=== PATIENT | female | born 1945 | race Caucasian/White ===

== ENCOUNTER 2025-03-20 11:00 | Outpatient (RCR) | payer MEDICARE, MEDICAID, SELFPAY ==
[2025-02-27 10:32] VITALS: BP 136/81; PULSE 84; RESP 14; TEMP 36.4
--- NOTE | 2025-02-27 13:28 | WC ---
PHOTO-RIGHT [facility] 02/27/25
--- NOTE | 2025-02-27 13:29 | WC ---
PHOTO-RIGHT [facility] 02/27/25
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
[2025-03-06 10:29] VITALS: BP 163/91; PULSE 82; RESP 16; TEMP 36.3
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
--- NOTE | 2025-03-06 13:57 | WC ---
PHOTO-RIGHT HERNANDEZ 03/06/25
--- NOTE | 2025-03-06 14:04 | WC ---
PHOTO-RIGHT MED ANKLE 03/06/25
--- NOTE | 2025-03-06 14:06 | WC ---
PHOTO-RIGHT HERNANDEZ 03/06/25
--- NOTE | 2025-03-06 14:08 | WC ---
PHOTO-RIGHT HERNANDEZ 03/06/25
[2025-03-20 11:42] VITALS: BP 158/100; PULSE 91; RESP 18; TEMP 36.5
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
--- NOTE | 2025-03-20 15:03 | WC ---
PHOTO-RIGHT MED ANKLE 03/20/25
--- NOTE | 2025-03-20 15:06 | WC ---
PHOTO-RIGHT HERNANDEZ 03/20/25
--- NOTE | 2025-03-25 08:23 | WC ---
Dr. Duron transfers care of this patient over to Dr. Carrington as of 03/20/25
== END 2025-03-25 23:59 | disposition home or self-care (01) ==
LOC: WC 11:00
PROVIDERS: PCP Family Medicine; Referring Provider Internal Medicine; Visit Provider Student in an Organized Health Care Education/Training Program
DX: L97.312 Non-pressure chronic ulcer of right ankle with fat layer exposed (principal); L97.212 Non-pressure chronic ulcer of right calf with fat layer exposed; I87.2 Venous insufficiency (chronic) (peripheral); I10 Essential (primary) hypertension; M76.821 Posterior tibial tendinitis, right leg; F41.9 Anxiety disorder, unspecified; R60.0 Localized edema; M19.071 Primary osteoarthritis, right ankle and foot; G47.00 Insomnia, unspecified
CPT/HCPCS: 11042

== ENCOUNTER 2025-04-10 10:00 | Outpatient (RCR) | payer MEDICARE, MEDICAID, SELFPAY ==
[2025-03-27 11:22] VITALS: BP 160/109; PULSE 83; RESP 16; TEMP 36.3; O2SAT 95
--- NOTE | 2025-03-27 13:13 | HP.PCM_ITS ---
History of Present Illness Date of Service: 03/27/25 Chief Complaint: Right lower extremity ulceration History of Wound: Ms. Sandoval is an 79-year-old who is a transfer of care to [place]. Had previously seen podiatry/wound care here. Being managed for right lower extremity ulcerations, now down to 1. Her daughter states that she has not been doing dressing changes as recommended. Believes that current dressing was left in place since it was placed here. She is unable to do it herself and there is no family member that is as available as her daughter works 2 jobs and her granddaughter lives an hour away. No documented history of diabetes mellitus. No chills, fever or otherwise feeling of unwell. [facility] Home Medications Medication Instructions Recorded Last Taken Type amlodipine 10 mg tablet 10 mg PO DAILY 02/27/25 Unkn own History colestipol 1 gram tablet 2 g PO BID 02/27/25 Unknown History potassium chloride 20 mEq 40 meq PO 02/27/25 Unknown H istory tablet,extended release(part/cryst) sertraline 50 mg tablet 50 mg PO DAILY 02/27/25 Unkn own History Allergy/AdvReac Type Severity Reaction Status Date / Time lisinopril Allergy Severe Anaphylaxis Verified 02/27/25 11:59 ROS Constitutional Constitutional: Denies change in weight, chills, excessive sweating, fatigue, fever(s) or headache(s) Eyes Eyes: Denies blindness, blurry vision, change in vision, discharge from eye(s), discongugate gaze or double vision ENT HEENT: Denies disequillibrium, dizziness, dysphagia, nasal congestion, nasal discharge or sore throat Cardiovascular Cardiovascular: Denies abdominal pain, chest pain, claudication, cold extremities, diaphoresis or palpitations Respiratory/Chest Respiratory/Chest: Denies cough, dyspnea on exertion, excessive phlegm production, hemoptysis, hoarseness, shortness of breath at rest or wheezing Gastrointestinal Gastrointestinal: Denies abdominal pain, bloating, constipation, diarrhea, excessive flatus, nausea or vomiting Genitourinary Genitourinary: Denies abdominal discomfort, dysuria, flank pain, hematuria or urinary urgency Musculoskeletal Musculoskeletal: Denies deformity, extremity pain, joint pain, joint stiffness or joint swelling Integumentary Integumentary: Denies erythema, furuncle, hirsutism, jaundice, pruritus, rash or skin swelling Neurologic Neurologic: Denies abnormal movements, abnormal speech, behavior changes, dizziness, numbness or seizures Psychiatric Psychiatric: Reports anxiety and depression; Denies auditory hallucinations, behavioral changes, difficulty concentrating or homicidal ideation Endocrine Endocrinology: Denies cold intolerance, deepening of the voice, excessive sweating, flushing or heat intolerance Hematologic/Lymphatic Hematologic/Lymphatic: Denies easy bleeding or easy bruising Allergic/Immunologic Allergic/Immunologic: Denies tongue swelling, hives, eczemia or wheezing Vital Signs Vital Signs Vital Signs: 03/27/25 11:22 Temperature 97.3 F L Temperature Source Temporal Pulse Rate 83 Respiratory Rate 16 Blood Pressure 160/109 H Blood Pressure Mean 126 Blood Pressure Source Monitor Blood Pressure Position Semi-Fowlers Blood Pressure Location Right Arm Pulse Ox 95 Oxygen Delivery Method Room Air Physical Exam Const alert and no apparent distress General Appearance: cooperative, comfortable and well kempt HEENT normocephalic Eyes General Eye: normal appearance of both eyes Neck full ROM General: normal visual inspection Resp normal respiratory effort Effort and Inspection: able to speak in complete sentences Extremity General Extremity: edema Skin Wounds: wounds noted size Size: See clinical note, bed granulating well, margins well approximated, no odor, open and surrounding erythema Neuro CN's II-XII intact bilaterally and moves all extremities Psych mental status grossly normal, thought process normal and cooperative Debridement Note Debridement Note Wound debrided: Right lower extremity (medial) Type of Debridement: Excisional debridement Anesthesia Used: 5% Lidocaine Gel Depth: Down to and including healthy tissue and in the subcutaneous layer Percentage of wound debrided: 100 Instrument Used: 5mm curette Tissue Removed: Slough and devitalized tissue Severity: Fat Layer Exposed Amount of bleeding with debridement: Mild Bleeding Controlled with: Pressure Patient tolerated procedure: Patient tolerated procedure well Post-Debridement Measurements and Additional Note: Post-Debridement Measurements/Treatment MER - Nurse 1 - General Ulcer Assessment Start: 03/27/25 11:22 Freq: Status: Active Protocol: DAMIR Activity Type Activity Date Activity User E-sign Co-sign Detail Recorded Client Recorded Date Recorded By Document 03/27/25 11:22 ROLY [id number] 03/27/25 11:42 ROLY 03/27/25 11:22 Vital Signs Temperature (97.8 F-99.1 F) 97.3 F L Temperature Source Temporal Pulse Rate (60-100) 83 Pulse Location Monitor Respiratory Rate (12-18) 16 Respiratory rate source Observation Pulse Oximetry 95 Oxygen Delivery Method Room Air Blood Pressure (90/60-120/80) 160/109 H Blood Pressure Mean 126 Source Monitor Position Semi-Fowlers Blood Pressure Location Right Arm History Since Last Visit- (Skip if this is Patient's initial visit) Have you changed medications since your No last visit? Any new allergies or adverse reactions No Had a fall/change in ADL's that may No increase risk of falls Signs or symptoms of abuse and/or No neglect since last visit Have you been in the hospital since your No last visit? Has dressing in place as prescribed Yes Has compression in place as prescribed No Has offloadiing in place as prescribed Yes Experienced any changes in pain level or No management Left Footwear Regular Shoe Right Footwear Breese/Foam Pain Scale: 0-10 Numeric Is Patient Pain Free? Yes WC - Nurse 1 - General Ulcer Measurement Start: 03/27/25 11:22 Freq: Status: Active Protocol: Activity Type Activity Date Activity User E-sign Co-sign Detail Recorded Client Recorded Date Recorded By Document 03/27/25 11:22 ROLY [id number] 03/27/25 11:42 ROLY 03/27/25 11:22 Wound Center Nurse 1 #2 RIGHT HERNANDEZ -Combined with other wound No -Current Size (cm) - Length 0.1 -Current Size (cm) - Width 0.1 -Current Size (cm) - Depth 0.1 -Total Square Cm 0.01 -Date of Last Picture (Recall this 03/27/25 field) -Photo Taken Yes -Tunneling No -Undermining/Tunneling No -Circular Undermining No -Exudate Amt None Present -Wound Margin Distinct, Outline Attached -Texture (Sharon-wound Skin Appearance) Assessed -Moisture (Sharon-wound Skin Appearance) Assessed -Color (Sharon-wound Skin Appearance) Assessed -Temperature (Sharon-wound Skin No Abnormality Appearance) (Pt Warm) -Tenderness on Palpation (Sharon-wound No Skin Appearance) -Ulcer Cleansing Soap and Water -Foul Odor after Cleansing No -Wound Comment(s) scab #1 RIGHT MEDIAL ANKLE -Combined with other wound No -Current Size (cm) - Length 0.9 -Current Size (cm) - Width 1 -Current Size (cm) - Depth 0.1 -Total Square Cm 0.9 -Date of Last Picture (Recall this 03/27/25 field) -Photo Taken Yes -Tunneling No -Undermining/Tunneling No -Circular Undermining No -Exudate Amt Small -Exudate Type Serosanguineous -Wound Margin Distinct, Outline Attached -Granulation Amt Medium (34-66%) -Granulation Quality [place],Red -Slough/Fibrin Yes -Necrosis Amt Medium (34-66%) -Necrotic Tissue Type Adherent Slough -Texture (Sharon-wound Skin Appearance) Assessed -Moisture (Sharon-wound Skin Appearance) Assessed -Color (Sharon-wound Skin Appearance) Assessed -Temperature (Sharon-wound Skin No Abnormality Appearance) (Pt Warm) -Tenderness on Palpation (Sharon-wound Yes Skin Appearance) -Ulcer Cleansing Soap and Water -Foul Odor after Cleansing No -Anesthetic Used 5% Lidocaine Gel Lower Limb Edema Present Yes Right Calf (cm) 40.5 Right Ankle (cm) 29.3 WC - Nurse 2 - General Ulcer CM Notes Start: 03/27/25 11:22 Freq: Status: Active Protocol: Activity Type Activity Date Activity User E-sign Co-sign Detail Recorded Client Recorded Date Recorded By Document 03/27/25 11:48 [id number] 03/27/25 11:56 GM 03/27/25 11:48 Wound Center Nurse 2 #1 RIGHT MEDIAL ANKLE -Time 11:49 -Correct Patient Yes -Correct Side, Site, Position Yes -Correct Procedure Yes -Procedure Performed Yes -Type of Procedure Debridement -Clinical Debridement Subcutaneous -Tissue Removed Subcutaneous -Post Debridement (cm) - Length 1.3 -Post Debridement (cm) - Width 1.0 -Post Debridement (cm) - Depth 0.1 -Total Square (Post) (cm) 1.30 -Area of Debridement (cm) - Length 1.3 -Area of Debridement (cm) - Width 1.0 -Total Square (Area) (cm) 1.30 -Tunneling No -Undermining/Tunneling No -Circular Undermining No -Wound/Ulcer Outcome Not Healed -Ulcer Cleansing Rinsed/ Irrigated with Saline -Foul Odor after Cleansing No -Bioengineered Tissue No -Bleeding Controlled with Pressure -Treatment Response Procedure Tolerated Well -Offloading Yes -Type of Offloading Other -Other Type of Offloading afo -Debridement - Subq, 1st 20sq cm Yes Pain Scale: 0-10 Numeric Is Patient Pain Free? Yes WC - Nurse 3 - General Ulcer D/C NN Start: 03/27/25 11:22 Freq: Status: Active Protocol: Activity Type Activity Date Activity User E-sign Co-sign Detail Recorded Client Recorded Date Recorded By Document 03/27/25 12:24 RB [id number] 03/27/25 12:27 RB 03/27/25 12:24 Wound Care Center Nurse 3 #2 RIGHT HERNANDEZ -Primary Dressing Applied NonAdherent Contact Layer, Silicone Border Foam AG 3.6x4 -Silicone Border Foam AG 3.6x4 1 #1 RIGHT MEDIAL ANKLE -Primary Dressing Applied Promogran Sarahi Matter, Silicone Border Foam 4x4 -Promogran Sarahi Matter 1 -Silicone Border Foam 4x4 1 RLE -Multi-Layered Wrap Application Multi-Layer Comp - Right ($ ) -Multi-Layer Compression Right (Qty 1 applied) Treatment Response Procedure Tolerated Well Pain Scale: 0-10 Numeric Is Patient Pain Free? Yes WC - Visit Discharge Discharge Condition Stable Ambulatory Status Ambulatory, Walker Transportation Private Auto Medication Reconcilliation completed & No provided to patient/care provider Clinical Summary of Care Provided Yes Charges/Coding Visit Charges Office Visits / Consults: [id number] OV L3 New 30min Procedures Integumentary [id number]: [id number] Denise subq tissue 20 sq cm/< Assessment/Plan Assessment/Plan (1) Non-pressure chronic ulcer of right ankle with fat layer exposed: CODE(S): L97.312 - Non-pressure chronic ulcer of right ankle with fat layer exposed (2) Non-pressure chronic ulcer of right calf with fat layer exposed: CODE(S): L97.212 - Non-pressure chronic ulcer of right calf with fat layer exposed (3) Venous insufficiency (chronic) (peripheral): CODE(S): I87.2 - Venous insufficiency (chronic) (peripheral) (4) Localized edema: CODE(S): R60.0 - Localized edema (5) Posterior tibial tendon dysfunction (PTTD) of right lower extremity: CODE(S): M76.821 - Posterior tibial tendinitis, right leg (6) Primary osteoarthritis, right ankle and foot: CODE(S): M19.071 - Primary osteoarthritis, right ankle and foot (7) Essential (primary) hypertension: CODE(S): I10 - Essential (primary) hypertension PLAN: Plan Debridement done as documented above, procedure was well-tolerated. No clinical concern for infection however, full compliance with dressing changes. As above, daughter states that patient is unable to do it on her own and she has no help consistently not to come in and do it every day. Continue Sarahi, cover with foam dressing. 3M wrap for edema management. Follow-up on Monday for nurse visit/change and in a week with me. Encourage leg elevation. Adequate protein intake and exercise as tolerated. Their questions were answered, they were advised to let us know if they have any further questions or concerns. Follow- up as above. This note was generated with [employer] dictation software. It may contain incorrect words, spelling, and punctuation that were not noted in checking the note before signing.
--- NOTE | 2025-03-31 10:39 | WC ---
PHOTO-RIGHT HERNANDEZ 03/27/25
--- NOTE | 2025-03-31 10:40 | WC ---
PHOTO-RIGHT MED ANKLE 03/27/25
[2025-03-31 11:25] VITALS: BP 138/63; PULSE 82; RESP 18; TEMP 36.3
[2025-04-03 11:13] VITALS: BP 161/100; PULSE 82; RESP 18; TEMP 35.3
--- NOTE | 2025-04-03 13:15 | PCM.WC.PN ---
History of Present Illness Date of Service: 04/03/25 Chief Complaint: Right lower extremity ulceration History of Wound: Ms. Sandoval is an 79-year-old who [place] a [place] of care to [place]. Had previously seen podiatry/wound care here. Being managed for right lower extremity ulcerations, now down to 1. Her daughter states that she has not been doing dressing changes as recommended. Believes that current dressing was left in place since it was placed here. She is unable to do it herself and there is no family member that is as available as her daughter works 2 jobs and her granddaughter lives an hour away. No documented history of diabetes mellitus. No chills, fever or otherwise feeling of unwell. Progress of Wound: No acute concerns at this time. Tolerated 3M without any concerns. Charles ulcer is healed. Ankle ulcer with some improvement. Objective Data Objective Data Vital Signs: Vital Signs Temp Pulse Resp BP Pulse Ox O2 Del Method 95.5 F L 82 18 161/100 H 95 Room Air 04/03/25 11:13 04/03/25 11:13 04/03/25 11:13 04/03/25 11:13 03/27/25 11:22 03/27/25 11:22 Oxygen Delivery Method Room Air Charges/Coding Procedures Integumentary [id number]: [id number] Denise subq tissue 20 sq cm/< Physical Exam Const alert and no apparent distress General Appearance: cooperative, comfortable and well kempt HEENT normocephalic Eyes General Eye: normal appearance of both eyes Neck full ROM General: normal visual inspection Resp normal respiratory effort Effort and Inspection: able to speak in complete sentences Extremity General Extremity: edema Skin Wounds: wounds noted size Size: See clinical note, bed granulating well, margins well approximated, no odor, open and surrounding erythema Neuro CN's II-XII intact bilaterally and moves all extremities Psych mental status grossly normal, thought process normal and cooperative Debridement Note Debridement Note Wound debrided: Right ankle Type of Debridement: Excisional debridement Anesthesia Used: 5% Lidocaine Gel Depth: Down to and including healthy tissue and in the subcutaneous layer Instrument Used: 5mm curette Tissue Removed: Slough and devitalized tissue Severity: Fat Layer Exposed Amount of bleeding with debridement: Mild Bleeding Controlled with: Pressure Patient tolerated procedure: Patient tolerated procedure well Post-Debridement Measurements and Additional Note: Post-Debridement Measurements/Treatment WC - Nurse 1 - General Ulcer Assessment Start: 03/27/25 11:22 Freq: Status: Active Protocol: MER.LOWJOSELUIST Activity Type Activity Date Activity User E-sign Co-sign Detail Recorded Client Recorded Date Recorded By Document 03/27/25 11:22 ROLY [id number] 03/27/25 11:42 ROLY Document 03/31/25 11:25 RB [id number] 03/31/25 11:27 RB Document 04/03/25 11:13 RB [id number] 04/03/25 11:16 RB 03/27/25 03/31/25 04/03/25 11:22 11:25 11:13 - Today's Visit Information Type of service Nurse-only Follow-up Visit Visit (Physician/[employer] ) Arrival Mode Walker Ambulatory, Walker Transfer Assistance Manual Manual Patient Identification Verified (Name & Yes Yes ) Patient Requires Transmission-Based No No Precautions Vital Signs Temperature (97.8 F-99.1 F) 97.3 F L 97.4 F L 95.5 F L Temperature Source Temporal Temporal Temporal Pulse Rate (60-100) 83 82 82 Pulse Location Monitor Monitor Monitor Respiratory Rate (12-18) 16 18 18 Respiratory rate source Observation Observation Observation Pulse Oximetry 95 Oxygen Delivery Method Room Air Blood Pressure (90/60-120/80) 160/109 H 138/63 H 161/100 H Blood Pressure Mean (mm Hg) 126 88 120 Source Monitor Monitor Monitor Position Semi-Fowlers Semi-Fowlers Semi-Fowlers Blood Pressure Location Right Arm Left Arm Left Arm History Since Last Visit- (Skip if this is Patient's initial visit) Have you changed medications since your No No No last visit? Any new allergies or adverse reactions No No No Had a fall/change in ADL's that may No No No increase risk of falls Signs or symptoms of abuse and/or No No No neglect since last visit Have you been in the hospital since your No No No last visit? Has dressing in place as prescribed Yes Yes Yes Has compression in place as prescribed No Yes Yes Has offloadiing in place as prescribed Yes N/A N/A Experienced any changes in pain level or No No No management Left Footwear Regular Shoe Regular Shoe Regular Shoe Right Footwear [place]/Foam Regular Shoe Custom Shoe Pain Scale: 0-10 Numeric Is Patient Pain Free? Yes Yes Yes WC - Nurse 1 - General Ulcer Measurement Start: 03/27/25 11:22 Freq: Status: Active Protocol: Activity Type Activity Date Activity User E-sign Co-sign Detail Recorded Client Recorded Date Recorded By Document 03/27/25 11:22 JM [id number] 03/27/25 11:42 JM Document 03/31/25 11:25 RB [id number] 03/31/25 11:27 RB Document 04/03/25 11:13 RB [id number] 04/03/25 11:16 RB 03/27/25 03/31/25 04/03/25 11:22 11:25 11:13 Wound Center Nurse 1 #2 RIGHT CHARLES -Combined with other wound No No -Current Size (cm) - Length 0.1 0.1 -Current Size (cm) - Width 0.1 0.1 -Current Size (cm) - Depth 0.1 0.1 -Total Square Cm 0.01 0.01 -Date of Last Picture (Recall this 03/27/25 field) -Photo Taken Yes Yes -Tunneling No No -Undermining/Tunneling No No -Circular Undermining No No -Exudate Amt None Present Medium -Exudate Type Serosanguineous -Wound Margin Distinct, Distinct, Outline Outline Attached Attached -Granulation Amt Medium (34-66%) -Granulation Quality [place] -Slough/Fibrin Yes -Necrosis Amt Medium (34-66%) -Necrotic Tissue Type Adherent Slough -Structure Exposed N/A -Texture (Sharon-wound Skin Appearance) Assessed Assessed -Moisture (Sharon-wound Skin Appearance) Assessed Assessed -Color (Sharon-wound Skin Appearance) Assessed Assessed -Temperature (Sharon-wound Skin No Abnormality No Abnormality Appearance) (Pt Warm) (Pt Warm) -Tenderness on Palpation (Sharon-wound No No Skin Appearance) -Ulcer Cleansing Soap and Water Wound Cleanser -Foul Odor after Cleansing No No -Anesthetic Used 5% Lidocaine Gel -Wound Comment(s) scab #1 RIGHT MEDIAL ANKLE -Combined with other wound No No -Current Size (cm) - Length 0.9 1 -Current Size (cm) - Width 1 1.5 -Current Size (cm) - Depth 0.1 0.1 -Total Square Cm 0.9 1.5 -Date of Last Picture (Recall this 03/27/25 field) -Photo Taken Yes Yes -Tunneling No No -Undermining/Tunneling No No -Circular Undermining No No -Exudate Amt Small Medium -Exudate Type Serosanguineous Serosanguineous -Wound Margin Distinct, Distinct, Outline Outline Attached Attached -Granulation Amt Medium (34-66%) Medium (34-66%) -Granulation Quality [place],Red [place] -Slough/Fibrin Yes Yes -Necrosis Amt Medium (34-66%) Medium (34-66%) -Necrotic Tissue Type Adherent Slough Adherent Slough -Structure Exposed N/A -Texture (Sharon-wound Skin Appearance) Assessed Assessed -Moisture (Sharon-wound Skin Appearance) Assessed Assessed -Color (Sharon-wound Skin Appearance) Assessed Assessed -Temperature (Sharon-wound Skin No Abnormality No Abnormality Appearance) (Pt Warm) (Pt Warm) -Tenderness on Palpation (Sharon-wound Yes No Skin Appearance) -Ulcer Cleansing Soap and Water Wound Cleanser -Foul Odor after Cleansing No No -Anesthetic Used 5% Lidocaine 5% Lidocaine Gel Gel Lower Limb Edema Present Yes Yes Yes Right Calf (cm) 40.5 38.6 42.5 Right Ankle (cm) 29.3 26 26.5 - Nurse 2 - General Ulcer CM Notes Start: 03/27/25 11:22 Freq: Status: Active Protocol: Activity Type Activity Date Activity User E-sign Co-sign Detail Recorded Client Recorded Date Recorded By Document 03/27/25 11:48 [id number] 03/27/25 11:56 Document 04/03/25 11:21 [id number] 04/03/25 11:26 03/27/25 04/03/25 11:48 11:21 Wound Center Nurse 2 #2 RIGHT CHARLES -Time 11:22 -Correct Patient Yes -Correct Side, Site, Position Yes -Correct Procedure No -Procedure Performed No -Tunneling No -Undermining/Tunneling No -Circular Undermining No -Wound/Ulcer Outcome Healed- Epithelialized -Foul Odor after Cleansing No -Bioengineered Tissue No -Bleeding Controlled with NA -Offloading No #1 RIGHT MEDIAL ANKLE -Time 11:49 11:23 -Correct Patient Yes Yes -Correct Side, Site, Position Yes Yes -Correct Procedure Yes Yes -Procedure Performed Yes Yes -Type of Procedure Debridement Debridement -Clinical Debridement Subcutaneous Subcutaneous -Tissue Removed Subcutaneous Subcutaneous -Post Debridement (cm) - Length 1.3 1.2 -Post Debridement (cm) - Width 1.0 0.5 -Post Debridement (cm) - Depth 0.1 0.1 -Total Square (Post) (cm) 1.30 0.60 -Area of Debridement (cm) - Length 1.3 1.2 -Area of Debridement (cm) - Width 1.0 0.5 -Total Square (Area) (cm) 1.30 0.60 -Tunneling No No -Undermining/Tunneling No No -Circular Undermining No No -Wound/Ulcer Outcome Not Healed Not Healed -Ulcer Cleansing Rinsed/ Rinsed/ Irrigated with Irrigated with Saline Saline -Foul Odor after Cleansing No No -Bioengineered Tissue No No -Bleeding Controlled with Pressure Pressure -Treatment Response Procedure Procedure Tolerated Well Tolerated Well -Offloading Yes No -Type of Offloading Other -Other Type of Offloading afo -Debridement - Subq, 1st 20sq cm Yes Yes Pain Scale: 0-10 Numeric Is Patient Pain Free? Yes Yes WC - Nurse 3 - General Ulcer D/C NN Start: 03/27/25 11:22 Freq: Status: Active Protocol: Activity Type Activity Date Activity User E-sign Co-sign Detail Recorded Client Recorded Date Recorded By Document 03/27/25 12:24 RB [id number] 03/27/25 12:27 RB Document 03/31/25 11:25 RB [id number] 03/31/25 11:27 RB Document 04/03/25 11:46 RB [id number] 04/03/25 11:48 RB 03/27/25 03/31/25 04/03/25 12:24 11:25 11:46 Wound Care Center Nurse 3 #2 RIGHT CHARLES -Ulcer Cleansing Wound Cleanser Rinsed/ Irrigated with Saline -Primary Dressing Applied NonAdherent NonAdherent NonAdherent Contact Layer, Contact Layer, Contact Layer Silicone Border Silicone Border Foam AG 3.6x4 Foam AG 3.6x4 -Other Dressing half of mepilex foam -Silicone Border Foam AG 3.6x4 1 1 #1 RIGHT MEDIAL ANKLE -Ulcer Cleansing Wound Cleanser Rinsed/ Irrigated with Saline -Primary Dressing Applied Promogran Promogran Promogran Sarahi Matter, Sarahi Matter, Sarahi Matter, Silicone Border Silicone Border Silicone Border Foam 4x4 Foam AG 3.6x4 Foam 6x6 -Promogran Sarahi Matter 1 1 1 -Silicone Border Foam AG 3.6x4 1 -Silicone Border Foam 4x4 1 -Silicone Border Foam 6x6 1 RLE -Multi-Layered Wrap Application Multi-Layer Multi-Layer Multi-Layer Comp - Right ($ Comp - Right ($ Comp - Right ($ ) ) ) -Multi-Layer Compression Right (Qty 1 1 1 applied) Treatment Response Procedure Procedure Procedure Tolerated Well Tolerated Well Tolerated Well Pain Scale: 0-10 Numeric Is Patient Pain Free? Yes Yes Yes WC - Visit Discharge Discharge Condition Stable Stable Stable Ambulatory Status Ambulatory, Walker Ambulatory, Walker Walker Transportation Private Auto Private Auto Private Auto Accompanied by daughter daughter Medication Reconcilliation completed & No No No provided to patient/care provider Clinical Summary of Care Provided Yes Yes Yes Assessment/Plan Assessment/Plan (1) Non-pressure chronic ulcer of right ankle with fat layer exposed: CODE(S): L97.312 - Non-pressure chronic ulcer of right ankle with fat layer exposed (2) Non-pressure chronic ulcer of right calf with fat layer exposed: CODE(S): L97.212 - Non-pressure chronic ulcer of right calf with fat layer exposed (3) Venous insufficiency (chronic) (peripheral): CODE(S): I87.2 - Venous insufficiency (chronic) (peripheral) (4) Localized edema: CODE(S): R60.0 - Localized edema (5) Posterior tibial tendon dysfunction (PTTD) of right lower extremity: CODE(S): M76.821 - Posterior tibial tendinitis, right leg (6) Primary osteoarthritis, right ankle and foot: CODE(S): M19.071 - Primary osteoarthritis, right ankle and foot (7) Essential (primary) hypertension: CODE(S): I10 - Essential (primary) hypertension PLAN: Plan Debridement done as documented above, procedure was well-tolerated. Doing really well. Charles ulcer is healed. Ankle with some improvement. Continue Sarahi, cover with foam dressing. 3M wrap for edema management. Due to convenience, leave in place for a week. Encourage leg elevation. Adequate protein intake and exercise as tolerated. Their questions were answered, they were advised to let us know if they have any further questions or concerns. Follow-up for nurse visit next week and in 2 weeks with me. This note was generated with [employer] software. It may contain incorrect words, spelling, and punctuation that were not noted in checking the note before signing.
[2025-04-10 10:36] VITALS: BP 153/85; PULSE 86; RESP 18; TEMP 36.8
--- NOTE | 2025-04-10 11:25 | WC ---
pt states she removed unna wrap due to wrapping falling down on Monday04/08/25
== END 2025-04-25 23:59 | disposition home or self-care (01) ==
LOC: WC 10:00
PROVIDERS: PCP Family Medicine; Referring Provider Internal Medicine; Visit Provider Internal Medicine
DX: L97.312 Non-pressure chronic ulcer of right ankle with fat layer exposed (principal); L97.212 Non-pressure chronic ulcer of right calf with fat layer exposed; M19.071 Primary osteoarthritis, right ankle and foot; I87.2 Venous insufficiency (chronic) (peripheral); I10 Essential (primary) hypertension; Z79.899 Other long term (current) drug therapy; M76.821 Posterior tibial tendinitis, right leg; R60.0 Localized edema
CPT/HCPCS: 11042; 29581